=== PATIENT | female | born 1980 | race Caucasian/White ===

== ENCOUNTER 2017-01-02 10:40 | Emergency (ER) | payer MEDICAID ==
[2017-01-02 11:03] VITALS: BP 132/98; PULSE 94; RESP 14; TEMP 97.5; O2SAT 95
--- NOTE | 2017-01-02 11:42 | UCPHY ---
H & P Time Seen by Provider: 01/02/17 11:06 Patient Type: New HPI/ROS: This patient has a cough of 3 weeks duration. She describes this as associated with minimal sputum. She notes no exacerbating or alleviating factors in the cough does not seem to be improving. ROS: No high fevers or chills. HEENT: No significant nasal congestion. No throat pain. No ear pain. No headache. Pulmonary: No pleuritic pain. She has occasional wheezing but no shortness of breath. Cardiovascular: No leg swelling or pain. GI: No complaints. 7 point ROS is otherwise negative. Past Medical/Surgical History: Otherwise healthy Smoking Status: Never smoked Physical Exam: Physical Exam Vital signs are normal. General: No acute distress HEENT: Nose: Clear discharge bilaterally. No sinus tenderness to percussion. Ears: External canals and tympanic membranes are clear with no erythema or abnormal findings bilaterally. Oropharynx: No erythema or exudates. No dysphonia. No drooling or stridor. Eyes: Pupils equal and react to light. Extraocular motions are intact. Lungs: Mild expiratory wheeze when she coughs or with force flex lesion. Otherwise clear to auscultation with no rales, rhonchi or wheeze. Cardiac: Regular rate and rhythm with no murmur gallop or rub she has no leg swelling or tenderness. Skin: No rash or pallor. Neuro: Alert with no focal deficits noted. Initial differential diagnosis: Viral URI with cough, pertussis, bronchitis Constitutional: Initial Vital Signs Temperature (C) 36.4 C 01/02/17 11:01 Heart Rate 94 01/02/17 11:01 Respiratory Rate 14 01/02/17 11:01 Blood Pressure 132/98 H 01/02/17 11:01 O2 Sat (%) 95 01/02/17 11:01 O2 Delivery Mode Room Air Allergies/Adverse Reactions: No Known Allergies Allergy (Verified 01/02/17 11:01) Home Medications: Medication Instructions Recorded Albuterol Hfa Anes Only [Proair 2 puffs IH Q4 PRN #1 mdi 01/02/17 Hfa Icu (*)] Azithromycin [Zithromax] 250 mg PO DAILY #6 tab 01/02/17 Bcp 01/02/17 Guaifenesin/Codeine Phosphate 5 - 10 ml PO Q6 PRN #120 ml 01/02/17 [Guaifenesin-Codeine Liquid] Lexapro 01/02/17 Rituxan 01/02/17 MDM/Departure - MDM ED Course/Re-evaluation: Given the persistence of the patient's symptoms will cover her with macrolide antibiotic. - Depart Disposition: Home, Routine, Self-Care Clinical Impression: Cough Condition: Good Instructions: Acute Bronchitis (ED) Additional Instructions: Diagnosis: Cough Plan: Humidifier Zithromax antibiotic Albuterol inhaler with spacer for cough, wheeze or shortness of breath Guaifenesin with codeine for cough prevents sleep Follow up with primary care physician for any ongoing symptoms last beyond the next week despite the treatment plan. Return for any significant worsening despite treatment plan Prescriptions: Albuterol Hfa Anes Only [Proair Hfa Icu (*)] 2 puffs IH Q4 PRN #1 mdi PRN Reason: Wheezing Azithromycin [Zithromax] 250 mg PO DAILY #6 tab Guaifenesin/Codeine Phosphate [Guaifenesin-Codeine Liquid] 5 - 10 ml PO Q6 PRN # 120 ml PRN Reason: Cough Referrals: NONE *PRIMARY CARE P,. [Primary Care Provider] - As per Instructions - PQRS PQRS Measurement: NA
== END 2017-01-02 11:55 | disposition home or self-care (01) ==
LOC: CED 10:40
DX: R05 Cough (principal)
CPT/HCPCS: G0463-PO

== ENCOUNTER 2017-01-29 16:31 | Emergency (ER) | payer MEDICAID ==
[2017-01-29 16:35] VITALS: BP 139/63; PULSE 96; RESP 18; TEMP 98; O2SAT 97
--- NOTE | 2017-01-29 17:16 | UCPHY ---
H & P Time Seen by Provider: 01/29/17 17:00 Patient Type: Established HPI/ROS: 36-year-old female presents complaining of sinus congestion, nasal congestion., cough., right eye redness Review of systems As per HPI-URI, sinus and nasal congestion General positive fever positive chills no weakness HEENT no eye pain no eye discharge. Positive eye redness no sore throat Respiratory positive cough, no shortness of breath Cardiac no chest pain, no peripheral edema GI no abdominal pain, no diarrhea, no constipation, no nausea, no vomiting no flank pain, no hematuria, no dysuria Musculoskeletal no myalgias, no joint pain Heme no easy bruising, no easy bleeding Endo no polyuria, no polydipsia Skin no rashes, no pruritus Neuro no syncope, no dizziness, no headaches Psych is no suicidal ideation, no homicidal ideation Past Medical/Surgical History: Depression Social History: Alcohol socially, denies drug use Smoking Status: Never smoked Physical Exam: 36-year-old female alert and oriented no acute distress nontoxic appearance afebrile Atraumatic normocephalic Extraocular muscles intact, anicteric, right eye with conjunctival erythema, no discharge Nares mild yellowish discharge, nasal turbinates swelling and erythema Oropharynx mild erythema no tonsillar swelling no exudate no uvular deviation, tolerating own secretions Neck supple no lymphadenopathy Lungs clear to auscultation bilaterally Heart regular rate and rhythm Abdomen normoactive bowel sounds soft nontender Extremities no cyanosis clubbing or edema Skin no rash Constitutional: Initial Vital Signs Temperature (C) 36.6 C 01/29/17 16:33 Heart Rate 96 01/29/17 16:33 Respiratory Rate 18 01/29/17 16:33 Blood Pressure 139/63 H 01/29/17 16:33 O2 Sat (%) 97 01/29/17 16:33 O2 Delivery Mode Room Air Allergies/Adverse Reactions: No Known Allergies Allergy (Verified 01/02/17 11:01) Home Medications: Medication Instructions Recorded Bcp 01/02/17 Lexapro 01/02/17 Rituxan 01/02/17 Amoxicillin/Clavulanate Pot 875 mg PO BID #20 tab 01/29/17 [Augmentin 875 MG TAB (*)] Fluticasone Nasal [Flonase Nasal 2 sprays NASAL DAILY 7 Days 01/29/17 [place]] Tobramycin 0.3% [Tobrex 0.3% opht 2 drops OP Q4 #7 opht.btl 01/29/17 drops (*)] predniSONE 40 mg PO DAILY 4 Days 01/29/17 Medical Decision Making ED Course/Re-evaluation: Patient seen and evaluated for fevers chills, sinus and nasal congestion, right eye redness Differential diagnosis considered URI, bronchitis, pneumonia, sinusitis, viral syndrome, influenza, conjunctivitis Exam consistent with sinusitis Impression Sinusitis, conjunctivitis Plan Augmentin Fluticasone Decongestant Tobramycin ophthalmic drops Follow-up PCP Departure - Departure Disposition: Home, Routine, Self-Care Clinical Impression: Acute maxillary sinusitis, Conjunctivitis Condition: Good Instructions: Sinusitis (ED), Conjunctivitis (ED) Referrals: NONE *PRIMARY CARE P,. [Primary Care Provider] - As per Instructions Prescriptions: Amoxicillin/Clavulanate Pot [Augmentin 875 MG TAB (*)] 875 mg PO BID #20 tab Fluticasone Nasal [Flonase Nasal [place]] 2 sprays NASAL DAILY 7 Days predniSONE 40 mg PO DAILY 4 Days Tobramycin 0.3% [Tobrex 0.3% opht drops (*)] 2 drops OP Q4 #7 opht.btl - PQRS PQRS Measurement: na
== END 2017-01-29 17:20 | disposition home or self-care (01) ==
LOC: CED 16:31
DX: J01.90 Acute sinusitis, unspecified (principal); H10.9 Unspecified conjunctivitis
CPT/HCPCS: 99214-PO; G0463-PO